=== PATIENT | female | born 1955 | race Caucasian/White ===

== ENCOUNTER 2024-03-10 16:05 | Emergency (ER) | payer MEDICARE, OTHER ==
[2024-03-10 16:32] VITALS: BMI 25.7
[2024-03-10 16:42] VITALS: BP 125/68; PULSE 70; RESP 18; TEMP 99
[2024-03-10] MEDS ORDERED: DIPHTH,PERTUSS(ACELL),TET 0.5 ML DISP.SYRIN IM ONE (17:28)
[2024-03-10] MEDS: DIPHTH,PERTUSS(ACELL),TET 0.5 ML DISP.SYRIN IM ONE (17:33)
[2024-03-10] MEDS: TETANUS AND DIPHTHERIA TOXOID 0.5 ML DISP.SYRIN IM ONE (17:33)
== END 2024-03-10 18:52 | disposition home or self-care (01) ==
LOC: FER 16:05
PROC: 3E0234Z Introduction of Serum, Toxoid and Vaccine into Muscle, Percutaneous Approach (ICD-10-PCS; principal; 2024-03-10)
DX: S00.01XA Abrasion of scalp, initial encounter (principal); W20.8XXA Other cause of strike by thrown, projected or falling object, initial encounter; Z23 Encounter for immunization
CPT/HCPCS: 70450-TC; 72125-TC; 90471; 90715; 99284-25